=== PATIENT | female | born 1985 | race Caucasian/White ===

== ENCOUNTER 2023-11-04 08:50 | Emergency (ER) | payer OTHER ==
[~2023-11-04] VITALS: Ht 165.1 cm; Wt 77.1 kg
[2023-11-04 09:02] VITALS: BP_SYST 124; PULSE 85; RESP 18; TEMP 97.8; O2SAT 99
[2023-11-04 09:39] LABS: BASOPHILS % (AUTO) 0.4 % (0.0-2.0); EOSINOPHILS # (AUTO) 0.1 K/uL (0.0-0.4); EOSINOPHILS % (AUTO) 0.9 % (0.0-4.0); HEMATOCRIT 42.1 % (36-48); LYMPHOCYTES # (AUTO) 2.2 K/uL (1.0-5.5); LYMPHOCYTES % (AUTO) 19.9 % (20.5-51.5); MEAN CORPUSCULAR HEMOGLOBIN 28 pg (27-31); MEAN CORPUSCULAR HGB CONC 33 % (32-36); MEAN CORPUSCULAR VOLUME 85 fL (79.0-98.0); MONOCYTES # (AUTO) 0.7 K/uL (0.0-1.0); MONOCYTES % (AUTO) 6.5 % (1.7-9.3); NEUTROPHILS # (AUTO) 7.9 K/uL (1.8-7.7); NEUTROPHILS % (AUTO) 72.3 % (40.0-70.0); PLATELET COUNT (AUTO) 348 K/uL (130-430); RED BLOOD CELL COUNT(AUTO) 4.96 MIL/uL (4.2-6.2); RED CELL DISTRIBUTION WIDTH 13.7 % (9.0-15.0); WHITE BLOOD COUNT (AUTO) 10.9 K/uL (4.8-10.8)
[2023-11-04] MEDS: NS 500 ML IV ONE (09:45)
[2023-11-04] MEDS: HYDROmorphone 1 MG/ML INJ. CARTRIDGE IVP ONE (09:45)
[2023-11-04] MEDS: ONDANSETRON HCL 4 MG/2 ML VIAL IVP ONE (09:47)
[2023-11-04 09:57] LABS: CREATININE 0.84 mg/dL (0.55-1.30); POTASSIUM 3.6 mmol/L (3.5-5.1)
[2023-11-04 11:30] VITALS: BP_SYST 123; PULSE 78; RESP 16; TEMP 98; O2SAT 96
[2023-11-04] MEDS ORDERED: TRAM50TA2 PO (12:04)
[2023-11-04] MEDS ORDERED: ONDA-8 TL (12:17)
== END 2023-11-04 12:20 | disposition home or self-care (01) ==
LOC: SED 08:50
DX: G43.909 Migraine, unspecified, not intractable, without status migrainosus (principal)
CPT/HCPCS: 99285; 70551; 96374; 96361; 96375; 80048; 85025; 36415; 81025; J2405; J1170; J7040